=== PATIENT | female | born 1980 | race Caucasian/White ===

== ENCOUNTER → 2016-09-10 | Day surgery (SDC) | payer OTHER ==
[2016-09-06 13:21] VITALS: BMI 54.0
[~2016-09-10] VITALS: Ht 162.6 cm; Wt 141.8 kg
[~2016-09-10] MED LIST: GABA-113 PO; LEVO75TA5 PO; LIDOCAINE HCL 2% 2 ML VIAL (20MG/ML) ONE; MIDAZOLAM HCL 1 MG/ML 2ML VIAL ONE; PROPOFOL IV EMULSION 10 MG/ML 20 ML VIAL IV ONE; PRT/20 PO; SODIUM CHLORIDE 0.9% 500ML 500 ML IV ONE; VENL150C PO
[2016-09-10 09:58] VITALS: Ht 162.6 cm; Wt 141.8 kg
--- NOTE | 2016-09-10 10:45 | Endo History and Physical ---
History & Physical Date of Service: Sep 10, 2016. Chief Complaint: CHRONIC DIARRHEA BLOATING REFLUX Referring Physician: DR CRUZ History of Present Illness diarrhea alternating with constipation, reflux symptoms - drinks energy drinks and coffee Past Surgical History Hx Cardiac Surgery: No Hx Internal Defibrillator: No Hx Pacemaker: No Hx Abdominal Surgery: Yes (NERI, TUBAL LIGATION) Hx of Implantable Prosthesis: No Hx Cancer Surgery: No Hx Thoracic Surgery: No Hx Orthopedic: Yes (RT WRIST CYST EXCISION) Hx Urinary Tract Surgery: No Family History None Social History Smoking Status: Never Smoker Hx Substance Use: No Hx Alcohol Use: Yes (OCCASIONALLY) Allergies Coded Allergies: Codeine (Verified Allergy, Unknown, GI UPSET, 09/10/16) Current Medications Reported Home Medications Medications Dose Route/Sig Max Daily Dose Days Date Category Neurontin (Gabapentin) 300 Mg Cap 300 Mg PO TID PRN 09/06/16 Reported Protonix (Pantoprazole Sodium) 20 Mg Tab 20 Mg PO BID 09/06/16 Reported Effexor Xr (Venlafaxine Hcl) 150 Mg Cap 1 Cap PO HS 30 09/06/16 Reported Levothyroxine Sodium 75 Mcg Tab 1 Tab PO QAM 90 09/06/16 Reported Vital Signs Weight (Kilograms): 141.82 Height (Feet): 5 Height (Inches): 4 Date Time Temp Pulse Resp B/P Pulse Ox O2 Delivery O2 Flow Rate FiO2 09/10/16 10:07 36.9 93 20 118/69 100 Room Air Physical Exam General Appearance: WD/WN, no apparent distress Assessment and Plan EGD and colonoscopy today
--- NOTE | 2016-09-10 11:17 | GI REPORT ---
Procedure Date: 09/10/2016 10:26 AM Procedure: Upper GI endoscopy Indications: Heartburn, Abdominal bloating, Diarrhea Medicines: Propofol per Anesthesia Complications: No immediate complications. Estimated blood loss: Minimal. Estimated Blood Loss: Estimated blood loss was minimal. Procedure: Pre-Anesthesia Assessment: - Prior to the procedure, a History and Physical was performed, and patient medications, allergies and sensitivities were reviewed. The patient's tolerance of previous anesthesia was reviewed. - The risks and benefits of the procedure and the sedation options and risks were discussed with the patient. All questions were answered and informed consent was obtained. - Patient identification and proposed procedure were verified prior to the procedure by the physician and the nurse. The procedure was verified in the pre-procedure area in the procedure room. - Mental Status Examination: alert and oriented. Airway Examination: normal oropharyngeal airway and neck mobility. Respiratory Examination: clear to auscultation. CV Examination: normal. Abdominal Examination: bowel sounds present, abdomen soft and non-tender, no masses or organomegaly noted. - ASA Grade Assessment: III - A patient with severe systemic disease. After obtaining informed consent, the endoscope was passed under direct vision. Throughout the procedure, the patient's blood pressure, pulse, and oxygen saturations were monitored continuously. The scope was introduced through the mouth, and advanced to the second part of duodenum. The upper GI endoscopy was accomplished without difficulty. The patient tolerated the procedure well. Findings: The esophagus was normal. The stomach was normal. The examined duodenum was normal. Biopsies for histology were taken with a cold forceps for evaluation of celiac disease. Verification of patient identification for the specimen was done by the physician and nurse using the patient's name and date. Estimated blood loss was minimal. Impression: - Normal esophagus. - Normal stomach. - Normal examined duodenum. Biopsied. Recommendation: - Await pathology results. - Follow an antireflux regimen. - Use a proton pump inhibitor PO daily. - Perform a colonoscopy today. Divine Wood D.O. Divine Wood, 09/10/2016 11:16:31 AM This report has been signed electronically. Note Initiated On: 09/10/2016 10:26 AM I attest to the content of the Intraoperative Record and orders documented therein, exceptions below
--- NOTE | 2016-09-10 11:19 | GI REPORT ---
Procedure Date: 09/10/2016 10:59 AM Procedure: Colonoscopy Indications: Change in bowel habits, Constipation, Diarrhea Medicines: Propofol per Anesthesia Complications: No immediate complications. Estimated blood loss: Minimal. Estimated Blood Loss: Estimated blood loss was minimal. Procedure: Pre-Anesthesia Assessment: - Prior to the procedure, a History and Physical was performed, and patient medications, allergies and sensitivities were reviewed. The patient's tolerance of previous anesthesia was reviewed. - The risks and benefits of the procedure and the sedation options and risks were discussed with the patient. All questions were answered and informed consent was obtained. - Patient identification and proposed procedure were verified prior to the procedure by the physician and the nurse. The procedure was verified in the pre-procedure area in the procedure room. - Mental Status Examination: alert and oriented. Airway Examination: normal oropharyngeal airway and neck mobility. Respiratory Examination: clear to auscultation. CV Examination: normal. Abdominal Examination: bowel sounds present, abdomen soft and non-tender, no masses or organomegaly noted. - ASA Grade Assessment: III - A patient with severe systemic disease. After I obtained informed consent, the scope was passed under direct vision. Throughout the procedure, the patient's blood pressure, pulse, and oxygen saturations were monitored continuously. The scope was introduced through the anus and advanced to the terminal ileum. The colonoscopy was performed without difficulty. The patient tolerated the procedure well. The quality of the bowel preparation was good. Findings: The perianal and digital rectal examinations were normal. Pertinent negatives include normal sphincter tone and no palpable rectal lesions. The terminal ileum appeared normal. The colon (entire examined portion) appeared normal. Biopsies for histology were taken with a cold forceps from the right colon and left colon for evaluation of microscopic colitis. Verification of patient identification for the specimen was done by the physician and nurse using the patient's name and date. Estimated blood loss was minimal. The retroflexed view of the distal rectum and anal verge was normal and showed no anal or rectal abnormalities. Impression: - The examined portion of the ileum was normal. - The entire examined colon is normal. Biopsied. - The distal rectum and anal verge are normal on retroflexion view. Recommendation: - Await pathology results. - Use fiber, for example Citrucel, Fibercon, Konsyl or Metamucil. - Return to primary care physician as previously scheduled. - Discharge patient to home. Divine Sergio Tilley, 09/10/2016 11:18:24 AM This report has been signed electronically. Note Initiated On: 09/10/2016 10:59 AM I attest to the content of the Intraoperative Record and orders documented therein, exceptions below
--- NOTE | 2016-09-10 11:20 | Discharge Instructions ---
Endoscopy Patient Instructions Date / Procedure(s) Performed Sep 10, 2016. Colonoscopy, EGD Allergy Information Coded Allergies: Codeine (Verified Adverse Reaction, Mild, GI UPSET, 09/10/16) Discharge Date / Findings Sep 10, 2016. normal EGD and colonoscopy Medication Instructions Restart Stopped Medication(s): OK to resume home medications. Take Protonix 40 mg once daily. Provider Instructions Activity Restrictions - No exercising or heavy lifting for 24 hours. - Do not drink alcohol the day of the procedure. - Do not drive a car or operate machinery until the day after the procedure. - Do not make any important decisions or sign important papers in 24 hours after the procedure. Following Day: - Return to full activity which may include returning to work/school. Diet Start your diet with liquids and light foods (jello, soup, juice, toast). Then eat your usual diet if not nauseated. Treatment For Common After Affects For mild abdominal pain, bloating, or excessive gas: - Rest - Eat lightly - Lie on right side Absolutely no caffeine or energy drinks or soda. Follow-Up Information Follow-up with DR CRUZ as scheduled Anesthesia Information What You Should Know You have had a procedure that required some medicine to reduce anxiety and discomfort. This treatment is called moderate sedation. After receiving the treatment, you may be sleepy, but you will be able to breathe on your own. The effects of the treatment may last for several hours. Follow these instructions along with Activity/Diet recommendations noted above: * Do NOT do anything where dizziness or clumsiness would be dangerous. * Rest quietly at home today, then you can be up and about tomorrow. * Have a responsible person stay with you the rest of today. * You may have had an I.V. today. If so, you may take the dressing off later today. Recommendations Call your doctor if: * Trouble breathing * Continuous vomiting for more than 24 hours * Temperature above 101 degrees * Severe abdominal pain or bloating * Pain not relieved by pain medicine ordered * There is increased drainage or redness from any incision * A large amount of rectal bleeding greater than 2-3 tablespoons. (If you had a polyp/s removed or have hemorrhoids, a small amount of blood - from the rectum is to be expected.) * You have any unanswered questions or concerns. IN THE EVENT OF A SERIOUS EMERGENCY, GO TO THE NEAREST EMERGENCY ROOM Your discharge instructions were prepared by provider Divine Wood. Patient Instructions Signature Page Khadijah Jose Patient (or Guardian) Signature/Date: I have read and understand the instructions given to me by my caregivers. Caregiver/RN/Doctor Signature/Date: The above-named patient and/or guardian has received patient instructions on this date. + Original Patient Signature Page (only) stays with chart. Please make copy for patient.
--- NOTE | 2016-09-10 11:42 | Anesthesiology Progress Note ---
Anesthesia Post Op Note Date & Time Sep 10, 2016 at 11:43 Vital Signs Pain Intensity: 0 Vital Signs Past 12 Hours Date Time Temp Pulse Resp B/P Pulse Ox O2 Delivery O2 Flow Rate FiO2 09/10/16 11:31 91 18 114/84 98 Room Air 09/10/16 11:16 103 16 98/60 98 Mask 10 09/10/16 10:07 36.9 93 20 118/69 100 Room Air Notes Mental Status: alert / awake / arousable, participated in evaluation Pt Amnestic to Procedure: Yes Nausea / Vomiting: adequately controlled Pain: adequately controlled Airway Patency, RR, SpO2: stable & adequate BP & HR: stable & adequate Hydration State: stable & adequate Anesthetic Complications: no major complications apparent
[2016-09-10 11:46] VITALS: BP 122/77; PULSE 84; O2SAT 99
== END | disposition home or self-care (01) ==
LOC: C.GI 09:32
PROVIDERS: ATTEND Internal Medicine
DX: R19.4 Change in bowel habit (principal); K59.00 Constipation, unspecified; R19.7 Diarrhea, unspecified; R12 Heartburn; R14.0 Abdominal distension (gaseous); K21.9 Gastro-esophageal reflux disease without esophagitis; E66.9 Obesity, unspecified; Z98.51 Tubal ligation status; Z98.890 Other specified postprocedural states; Z88.5 Allergy status to narcotic agent; Z90.49 Acquired absence of other specified parts of digestive tract; Z85.9 Personal history of malignant neoplasm, unspecified

== ENCOUNTER 2017-09-09 08:41 | Emergency (ER) | payer OTHER ==
[~2017-09-09] VITALS: Ht 162.6 cm; Wt 159.9 kg
[~2017-09-09 08:41] MED LIST changes: -LIDOCAINE HCL 2% 2 ML VIAL (20MG/ML) ONE; -MIDAZOLAM HCL 1 MG/ML 2ML VIAL ONE; -PROPOFOL IV EMULSION 10 MG/ML 20 ML VIAL IV ONE; -SODIUM CHLORIDE 0.9% 500ML 500 ML IV ONE
[2017-09-09 08:46] VITALS: TEMP 36.7; Ht 162.6 cm; Wt 159.9 kg
--- NOTE | 2017-09-09 09:02 | EMERGENCY ROOM VISIT NOTE ---
History First contact with patient: 08:50 Chief Complaint: COUGH Stated Complaint: COUGH CHEST HURT EARS Nursing Triage Summary: cough, headache, hurts to cough symptoms started yesterday History of Present Illness The patient is a 37 year old female who presents to the Emergency Room with complaints of 1 day h/o non productive cough, fatigue, myalgias and headache. Pt states that 2 nights prior she was outside in the cold without a jacket. The next morning woke up with headache and cough, developed some chest tightness with her cough "my chest is killing me". Pt denies any h/o asthma, does not smoke, no other immunosuppressive therapies. Has thyroid disease. Says her cough is keeping her up at night. Review of Systems ROS See HPI for pertinent positives and negatives. Past Medical/Surgical History Medical Problems: (1) No Known Active Medical Problems Social History Smoking Status: Never Smoker Marital Status: Housing Status: lives with family Current/Historical Medications Scheduled Benzonatate (Tessalon Perles), 200 MG PO TID Doxycycline Monohydrate (Monodox), 100 MG PO BID Levothyroxine Sodium (Synthroid), 125 MCG PO DAILY Pantoprazole (Protonix), 20 MG PO BID Venlafaxine Hcl (Effexor Xr), 150 MG PO HS Scheduled PRN Gabapentin (Neurontin), 300 MG PO TID PRN for PRN Physical Exam Vital Signs Date Time Temp Pulse Resp B/P (MAP) Pulse Ox O2 Delivery O2 Flow Rate FiO2 09/09/17 10:38 96 18 131/92 100 09/09/17 08:46 36.7 100 18 117/81 96 Room Air 09/09/17 08:46 97 Room Air Physical Exam GENERAL: Awake, alert, in no distress. Obese. HENT: Normocephalic, atraumatic. EYES: Normal conjunctiva. Sclera non-icteric. NECK: Supple. FROM. No JVD. RESPIRATORY: Mild expiratory wheeze heard bilaterally. CARDIAC: Regular rate, normal rhythm. Extremities warm and well perfused. Pulses equal. ABDOMEN: Soft, non-distended. No tenderness to palpation. No rebound or guarding. No masses. LOWER EXTREMITIES: Calves are equal size bilaterally and non-tender. No edema. No discoloration. NEURO: No motor deficits noted. SKIN: No rash or jaundice noted. Medical Decision & Procedures Laboratory Results Test 09/09/17 09:05 Influenza Type A Antigen Neg for Influ A (NEG) Influenza Type B Antigen Neg for Influ B (NEG) Medications Administered Medications (Trade) Dose Ordered Sig/Bridget Route Start Time Stop Time Status Last Admin Dose Admin Doxycycline Hyclate (Vibramycin Cap) 100 mg NOW STAT PO 09/09/17 10:14 09/09/17 10:16 DC 09/09/17 10:35 100 MG Procedure CHEST ONE VIEW PORTABLE CLINICAL HISTORY: Cough. COMPARISON STUDY: No previous studies for comparison. FINDINGS: There is mild left midlung airspace opacity. Right lung is clear. There is no pneumothorax or pleural effusion. Cardiac size is normal. Mediastinal contours are normal. IMPRESSION: Mild left midlung airspace opacity which favors a small focus of pneumonia. Post treatment radiographs to ensure resolution are recommended. Electronically signed by: Moncho Esquivel M.D. 09/09/2017 9:45 AM Dictated Date/Time: 09/09/2017 9:42 AM Medical Decision The patient is a 37 year old female who presents to the Emergency Room with complaints of 1 day h/o non productive cough, fatigue, myalgias and headache. Pt states that 2 nights prior she was outside in the cold without a jacket. The next morning woke up with headache and cough, developed some chest tightness with her cough "my chest is killing me". Pt denies any h/o asthma, does not smoke, no other immunosuppressive therapies. Has thyroid disease. Says her cough is keeping her up at night. Diff dx: pneumonia community acquired, bronchitis, asthma, URTI CXR shows Mild left midlung airspace opacity which favors a small focus of pneumonia. Prescribed Doxycycline x 7 days as below and benzonatate perles for cough. Pt understands to use tylenol/ibuprofen for pain or fever control. Pt is to follow up with PCP in 2-5 days to follow up pneumonia and resolution of wheezing. Pt verbalized understanding and agreement. Impression Primary Impression: CAP (community acquired pneumonia) Departure Information Dispostion Home / Self-Care Condition GOOD Prescriptions Doxycycline Monohydrate (Monodox) 100 Mg Cap 100 MG PO BID for 7 Days, #14 CAP Prov: Suzanne Burr M.D. 09/09/17 Benzonatate (Tessalon Perles) 200 Mg Cap 200 MG PO TID for 5 Days, #15 CAP Prov: Aminah, Suzanne ., M.D. 09/09/17 Referrals Emeterio Ordaz D.O. (PCP) Patient Instructions My [facility] Additional Instructions PNEUMONIA INSTRUCTIONS: Doxycycline 100mg: Take one pill twice daily for seven days for your infection. Take with food, but avoid dairy. Avoid prolonged sun exposure since this medication makes you temporarily more susceptible to sunburns. All antibiotics can cause diarrhea. If this occurs and you feel worse or it does not resolve in 1-2 days follow up with your doctor or return to the Emergency Department as this could be signs of serious underlying problems. Any medication can cause an allergic reaction, stop the pills immediately and return to the ER for rash, hives, breathing difficulties, or swelling. Ibuprofen(Motrin, Advil) may be used for fever or pain. Use 600mg every six hours as needed. Take with food. Avoid using more than 2400mg in a 24 hour period. Do not use 2400mg per day for more than three consecutive days without physician direction. Prolonged inappropriate use can lead to stomach upset or ulcers. This is available over the counter and typically comes in 200mg tablets. (AND/OR) Acetaminophen(Tylenol) may be used for fever or pain. Use 1000mg every eight hours as needed. Avoid using more than 3000mg in a 24 hour period. This is available over the counter. Read all the package inserts or medication information paperwork provided. If you have any questions or concerns call your primary provider, pharmacist or the ER for assistance. Controlling your fever with Tylenol and Ibuprofen as above will make you feel better. Rest and drink plenty of fluids. Avoid strenuous activity until your symptoms resolve and your breathing returns to normal. Continue current medications. Return to the ER for chest pain, difficulty breathing, persistent fevers, vomiting, worsening of your condition, or as needed Work Instructions Return To Work: 5 days Resident Tracking Resident Involvement: Resident Care Provided Care Provided: Adult Hospital Medicine
--- NOTE | 2017-09-09 09:47 | DIAGNOSTIC IMAGING REPORT ---
CHEST ONE VIEW PORTABLE CLINICAL HISTORY: Cough. COMPARISON STUDY: No previous studies for comparison. FINDINGS: There is mild left midlung airspace opacity. Right lung is clear. There is no pneumothorax or pleural effusion. Cardiac size is normal. Mediastinal contours are normal. IMPRESSION: Mild left midlung airspace opacity which favors a small focus of pneumonia. Post treatment radiographs to ensure resolution are recommended. Electronically signed by: Moncho Esquivel M.D. 09/09/2017 9:45 AM Dictated Date/Time: 09/09/2017 9:42 AM
[2017-09-09 09:58] LABS: INFLUENZA B ANTIGEN Neg for Influ B (NEG)
[2017-09-09] MEDS ORDERED: LEVO125T72 PO (10:06)
[2017-09-09] MEDS ORDERED: DOXYCYCLINE HYCLATE 100 MG CAP PO STA (10:14)
[2017-09-09] MEDS ORDERED: DOXY100C76 PO (10:17)
[2017-09-09] MEDS ORDERED: BENZ1CAP90 PO (10:17)
[2017-09-09 10:38] VITALS: BP 131/92; PULSE 96; O2SAT 100
--- NOTE | 2017-09-09 15:04 | EMERGENCY ROOM VISIT NOTE ---
History Report prepared by Rajesh: Gisela Desai Under the Supervision of: Dr. Andrei Donahue D.O. First contact with patient: 08:50 Chief Complaint: COUGH Stated Complaint: COUGH CHEST HURT EARS Nursing Triage Summary: cough, headache, hurts to cough symptoms started yesterday History of Present Illness The patient is a 37 year old female who presents to the Emergency Room with complaints of constant generalized illness beginning yesterday. The patient reports sorethroat, cough, ear pain. She states also chest pain when she coughs. Her chest pain worsens with twisting. She rates her chest pain as an 8/ 10 when she is coughing. Chest pain is sharp and stabbing in nature. No other exacerbating or remitting factors with the exception of the coughing or movement. Pt denies headache, change in vision, fevers, runny nose, shortness of breath, nausea, vomiting, diarrhea, pain with urination, and melena. The patient denies any recent sick contact. The patient denies any history of blood blots, heart disease, diabetes. The patient is not a smoker. Source of History: patient Onset: yesterday Position: other (generalized) Symptom Intensity: 8/10 Quality: other (illness) Timing: constant Associated Symptoms: + sorethroat, + cough, No chest pain, No SOB, No nausea , No vomiting, No urinary symptoms Review of Systems See HPI for pertinent positives & negatives. A total of 10 systems reviewed and were otherwise negative. Past Medical & Surgical Medical Problems: (1) No Known Active Medical Problems Family History FH: cancer FH: hypertension Heart disease Social History Smoking Status: Never Smoker Smokeless Tobacco Use: No Alcohol Use: none Drug Use: none Marital Status: Housing Status: lives with family Occupation Status: employed Current/Historical Medications Scheduled Benzonatate (Tessalon Perles), 200 MG PO TID Doxycycline Monohydrate (Monodox), 100 MG PO BID Levothyroxine Sodium (Synthroid), 125 MCG PO DAILY Pantoprazole (Protonix), 20 MG PO BID Venlafaxine Hcl (Effexor Xr), 150 MG PO HS Scheduled PRN Gabapentin (Neurontin), 300 MG PO TID PRN for PRN Allergies Coded Allergies: Codeine (Verified Adverse Reaction, Mild, GI UPSET, 09/09/17) Physical Exam Vital Signs Date Time Temp Pulse Resp B/P (MAP) Pulse Ox O2 Delivery O2 Flow Rate FiO2 09/09/17 10:38 96 18 131/92 100 09/09/17 08:46 36.7 100 18 117/81 96 Room Air 09/09/17 08:46 97 Room Air Physical Exam GENERAL: Sitting up in bed, alert, well appearing, well nourished, dry nonproductive persistent cough, no distress, non-toxic EYE EXAM: normal conjunctiva. OROPHARYNX: no exudate, no erythema, lips, buccal mucosa, and tongue normal and mucous membranes are moist NECK: supple, no nuchal rigidity, no adenopathy, non-tender LUNGS: Clear to auscultation. Normal chest wall mechanics HEART: no murmurs, S1 normal and S2 normal ABDOMEN: abdomen soft, non-tender, normo-active bowel sounds, no masses, no rebound or guarding. BACK: Back is symmetrical on inspection and there is no deformity, no midline tenderness, no CVA tenderness. SKIN: no rashes and no bruising UPPER EXTREMITIES: upper extremities are grossly normal. LOWER EXTREMITIES: No pitting edema. Calves equal bilaterally. NEURO EXAM: Normal sensorium, cranial nerves II-XII grossly intact, normal speech, no gross weakness of arms, no gross weakness of legs. Medical Decision & Procedures ER Provider Diagnostic Interpretation: Radiology results as stated below per my review and the radiologist's interpretation: CHEST ONE VIEW PORTABLE FINDINGS: There is mild left midlung airspace opacity. Right lung is clear. There is no pneumothorax or pleural effusion. Cardiac size is normal. Mediastinal contours are normal. IMPRESSION: Mild left midlung airspace opacity which favors a small focus of pneumonia. Post treatment radiographs to ensure resolution are recommended. Electronically signed by: Moncho Esquivel M.D. Laboratory Results Test 09/09/17 09:05 Influenza Type A Antigen Neg for Influ A (NEG) Influenza Type B Antigen Neg for Influ B (NEG) Laboratory results per my review. Medications Administered Medications (Trade) Dose Ordered Sig/Bridget Route Start Time Stop Time Status Last Admin Dose Admin Doxycycline Hyclate (Vibramycin Cap) 100 mg NOW STAT PO 09/09/17 10:14 09/09/17 10:16 DC 09/09/17 10:35 100 MG ED Course ED COURSE: Vital signs were reviewed and showed tachycardic The patients medical record was reviewed The above diagnostic studies were performed and reviewed. ED treatments and interventions as stated above. 0930: The patient was evaluated in room A12B. A complete history and physical examination was performed. 1014: Ordered Vibramycin Cap 100 mg PO. 1033: Upon reevaluation, the patient is resting comfortably.I discussed my findings with the patient and she understands and agrees with the treatment plan. Based on the patients age, coexisting illnesses, exam and lab findings the decision to treat as an outpatient was made. The patient remained stable while under my care. The patient appeared well at the time of discharge. Medical Decision Differential diagnoses includes but is not limited to pneumonia, bronchitis, COPD/Asthma exacerbation, pneumothorax, pulmonary embolism, congestive heart failure, acute coronary syndrome. Patient was seen independently of the resident. She is a 29-year-old female who presents the ER for dry persistent cough. The coughing is causing her chest pain. She has no other complaints with the exception of sore throat, ear pain. Chest x-ray shows pneumonia. Influenza is negative. Vitals are stable. She is otherwise well-appearing. Patient was given oral doxycycline and discharged follow-up as an outpatient with muscle skeletal chest pain and pneumonia. Discussed with Pt concerning signs and symptoms to watch out for. Pt was instructed to follow up with their PCP and discussed with the patient their option to return to the ED at anytime for persistent or worsening symptoms. The appropriate anticipatory guidance and out-patient management, including indications for return to the emergency department, were explained at length to the patient and understood. Medication Reconcilliation Current Medication List: was personally reviewed by me Blood Pressure Screening Patient's blood pressure: Normal blood pressure Impression Primary Impression: Pneumonia Scribe Attestation The scribe's documentation has been prepared under my direction and personally reviewed by me in its entirety. I confirm that the note above accurately reflects all work, treatment, procedures, and medical decision making performed by me. Departure Information Dispostion Home / Self-Care Prescriptions Doxycycline Monohydrate (Monodox) 100 Mg Cap 100 MG PO BID for 7 Days, #14 CAP Prov: Suzanne Burr M.D. 09/09/17 Benzonatate (Tessalon Perles) 200 Mg Cap 200 MG PO TID for 5 Days, #15 CAP Prov: Suzanne Burr M.D. 09/09/17 Referrals Emeterio Ordaz D.O. (PCP) Forms HOME CARE DOCUMENTATION FORM, IMPORTANT VISIT INFORMATION Patient Instructions My [facility], Pneumonia (Bacterial) - [facility] Additional Instructions Please follow up with your primary care doctor with in the next 24 hours. Any worsening of your symptoms, please return to the ED immediately. This includes any fevers greater than 100.4, worsening pain, chest pain, shortness breath, persistent nausea, vomiting, unable to eat or drink, or any other concerning signs or symptoms from your standpoint. Please take antibiotics as prescribed. Please take Tessalon Perles as needed for coughing. Problem Qualifiers Primary Impression: Pneumonia Pneumonia type: due to unspecified organism Laterality: unspecified laterality Lung location: unspecified part of lung Qualified Codes: J18.9 - Pneumonia, unspecified organism
== END 2017-09-09 10:39 | disposition home or self-care (01) ==
LOC: C.EDB 08:44 → C.EDA 10:39
DX: J18.9 Pneumonia, unspecified organism (principal); Z88.6 Allergy status to analgesic agent; Z82.49 Family history of ischemic heart disease and other diseases of the circulatory system